=== PATIENT | female | born 1955 | race Caucasian/White ===

== ENCOUNTER 2025-02-10 14:42 | Emergency (ER) | payer MEDICARE, OTHER ==
[~2025-02-10] VITALS: Ht 165.1 cm; Wt 86.2 kg
[2025-02-10 15:02] VITALS: TEMP 83
[2025-02-10] MEDS ORDERED: CLOT15CR27 TP (15:22)
[2025-02-10] MEDS: CLOTRIMAZOLE 1% 15 GM TUBE TP STA (15:55)
[2025-02-10 16:13] VITALS: BP 125/80; O2SAT 96
== END 2025-02-10 16:11 | disposition home or self-care (01) ==
LOC: ER 14:42
DX: B37.2 Candidiasis of skin and nail (principal); M19.90 Unspecified osteoarthritis, unspecified site; Z87.19 Personal history of other diseases of the digestive system